=== PATIENT | female | born 1975 | race Hispanic/Latino ===

== ENCOUNTER 2020-02-16 19:17 | Emergency (ER) | payer OTHER ==
--- NOTE | 2020-02-16 21:08 | RAD REPORT ---
EXAM DESCRIPTION: RAD - Shoulder Right 2 View - 02/16/2020 8:59 pm CLINICAL HISTORY: Right shoulder pain FINDINGS: No fracture or dislocation is seen. Small calcific density superior to the humeral head ma y indicate calcific tendinitis
--- NOTE | 2020-02-16 21:18 | EDPHYS ---
Physician Documentation [facility] Name: Ave Salcedo Age: 44 yrs Sex: Female : 1975 Arrival Date: 02/16/2020 Time: 19:20 Bed 8 Private MD: ED Physician Luis Malik HPI: 02/15 20:15 This 44 yrs old Female presents to ER via Ambulatory with complaints of cp Shoulder Pain. 20:15 The patient or guardian complains of an injury, pain, that is acute. right shoulder. cp 20:15 Onset: The symptoms/episode began/occurred 24 day(s) ago. cp 20:15 Modifying factors: The symptoms are aggravated by movement, rotation of arm. Associated cp signs and symptoms: Pertinent negatives: chest pain, neck pain, Numbness in right arm and right shoulder shortness of breath, Weakness in right arm and right shoulder. 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 - Social history:: Smoking status: Patient denies any tobacco usage or history of. Patient uses alcohol, only on a social basis. Patient/guardian denies using street drugs. ROS: 20:20 MS/extremity: Positive for pain, tenderness, of the right shoulder, Negative for cp decreased range of motion, paresthesias, swelling. 20:20 Constitutional: Negative for body aches, chills, fever. cp 20:20 Neck: Negative for pain with movement, pain at rest, stiffness, tenderness, bony tenderness. 20:20 Cardiovascular: Negative for chest pain, palpitations. 20:20 Respiratory: Negative for cough, shortness of breath, wheezing. 20:20 Back: Negative for pain at rest, pain with movement. 20:20 Skin: Negative for rash. 20:20 All other systems are negative. Exam: 20:25 Constitutional: The patient appears in no acute distress, alert, awake, cp non-diaphoretic, well developed, well nourished. 20:25 Head/Face: Normocephalic, atraumatic. cp 20:25 Chest/axilla: Inspection: normal, Palpation: is normal, no crepitus, no tenderness. 20:25 Cardiovascular: Rate: normal, Rhythm: regular, Pulses: Pulses are 2+ in right radial artery and left radial artery. 20:25 Respiratory: the patient does not display signs of respiratory distress, Respirations: normal, no use of accessory muscles, no retractions, labored breathing, is not present. 20:25 Musculoskeletal/extremity: ROM: limited passive range of motion due to pain, in the right shoulder, Sensation intact. Joints: All joints are normal except the right shoulder displays painful range of motion, tenderness. 20:25 Skin: no rash present. Vital Signs: 19:32 BP 131 / 93; Pulse 88; Resp 17; Temp 99.0; Pulse Ox 98% ; Pain 7/10; ll1 21:30 BP 119 / 73; Pulse 85; Resp 16; Temp 97.1; Pulse Ox 99% ; rr5 MDM: 20:03 Patient medically screened. [facility] 20:30 Differential diagnosis: tendonitis, rotator cuff injury, strain. 21:00 Test interpretation: by ED physician or midlevel provider: xrays of right shoulder cp negative for fracture. 21:17 Data reviewed: vital signs, nurses notes, radiologic studies, plain films, and as a cp result, I will discharge patient. 21:17 Counseling: I had a detailed discussion with the patient and/or guardian regarding: the cp historical points, exam findings, and any diagnostic results supporting the discharge/admit diagnosis, radiology results, the need for outpatient follow up, a orthopedic surgeon, to return to the emergency department if symptoms worsen or persist or if there are any questions or concerns that arise at home. 02/15 20:12 Order name: XRAY Shoulder RIGHT 2 view; Complete Time: 21:11 cp 02/15 21:11 Interpretation: Reviewed. 02/15 21:13 Order name: Sling; Complete Time: 21:22 cp Administered Medications: No medications were administered Disposition: 21:35 Chart complete. 02/16 10:37 Co-signature as Attending Physician, Luis Malik MD I agree with the assessment and [facility] plan of care. Disposition: 02/16/20 21:18 Discharged to Home. Impression: Pain in right shoulder. - Condition is Stable. - Discharge Instructions: Shoulder Pain, Shoulder Range of Motion Exercises. - Prescriptions for Diclofenac Sodium 75 mg Oral Tablet, Delayed Release (E.C.) - take 1 tablet by ORAL route 2 times per day; 20 tablet. - Medication Reconciliation Form, Thank You Letter, Antibiotic Education, Prescription Opioid Use form. - Follow up: Fernando Martines MD; When: 2 - 3 days; Reason: Recheck today's complaints. - Problem is new. - Symptoms are unchanged. Signatures: Dispatcher [employer] EDMS Luis Malik MD MD cha Page, Corey, PA PA cp Floyd Jones RN RN rr5 Romero Rojas RN RN ll1 Corrections: (The following items were deleted from the chart) 02/15 21:32 21:18 02/16/2020 21:18 Discharged to Home. Impression: Pain in right shoulder. rr5 Condition is Stable. Forms are Medication Reconciliation Form, Thank You Letter, Antibiotic Education, Prescription Opioid Use. Follow up: Dr. Fernando Martines; When: 2 - 3 days; Reason: Recheck today's complaints. Problem is new. Symptoms are unchanged. cp
--- NOTE | 2020-02-16 21:18 | ER ---
Nurse's Notes [facility] Name: Ave Salcedo Age: 44 yrs Sex: Female : 1975 Arrival Date: 02/16/2020 Time: 19:20 Bed 8 Private MD: Diagnosis: Pain in right shoulder Presentation: 02/15 19:32 Chief complaint: Patient states: Fell 24 days ago. Hurt right shoulder, right ribs, and ll1 right hip. States her hip and ribs feel better now. Right shoulder/arm still hurts, states she was overusing it about 12 days ago. Coronavirus screen: Patient denies a cough. Patient denies shortness of breath or difficulty breathing. Patient denies measured and/or subjective temperature greater than 100.4F prior to today's visit. Patient denies travel on a cruise ship or to a country the [facility] currently lists as an affected area. Patient denies contact with known and/or suspected case of COVID-19. Proceed with normal triage. Ebola Screen: Patient denies travel to an Ebola-affected area in the 21 days before illness onset. Initial Sepsis Screen: Does the patient meet any 2 criteria? No. Patient's initial sepsis screen is negative. Risk Assessment: Do you want to hurt yourself or someone else? Patient reports no desire to harm self or others. Onset of symptoms was January 25, 2020. 19:32 Method Of Arrival: Ambulatory ll1 19:32 Acuity: PATT 4 ll1 19:40 Initial Sepsis Screen: Does the patient have a suspected source of infection? No. Patient's initial sepsis screen is negative. 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 - Social history:: Smoking status: Patient denies any tobacco usage or history of. Patient uses alcohol, only on a social basis. Patient/guardian denies using street drugs. Screenin:40 Abuse screen: Denies threats or abuse. Denies injuries from another. Nutritional screening: No deficits noted. Tuberculosis screening: No symptoms or risk factors identified. Fall Risk Fall in past 12 months (25 points). Assessment: 19:39 General: Appears in no apparent distress. Behavior is calm, cooperative, appropriate wh for age. Pain: Complains of pain in right shoulder. Neuro: Level of Consciousness is awake, alert, obeys commands, Oriented to person, place, time, situation, Appropriate for age. Cardiovascular: Capillary refill < 3 seconds. Respiratory: Airway is patent Respiratory effort is even, unlabored, Respiratory pattern is regular, symmetrical. GI: Abdomen is flat, non-distended. : No signs and/or symptoms were reported regarding the genitourinary system. EENT: No signs and/or symptoms were reported regarding the EENT system. Derm: Skin is intact, is healthy with good turgor, Skin is pink, warm \T\ dry. normal. Musculoskeletal: Range of motion: limited in right shoulder. 21:31 Reassessment: Patient appears in no apparent distress at this time. Patient is alert, rr5 oriented x 3, equal unlabored respirations, skin warm/dry/pink. discharge instruction given and explained without complaints made. Vital Signs: 19:32 BP 131 / 93; Pulse 88; Resp 17; Temp 99.0; Pulse Ox 98% ; Pain 7/10; ll1 21:30 BP 119 / 73; Pulse 85; Resp 16; Temp 97.1; Pulse Ox 99% ; rr5 ED Course: 19:20 Patient arrived in ED. cl3 19:35 Triage completed. ll1 19:36 Arm band placed on Patient placed in an exam room, on a stretcher. ll1 19:38 Justice Rios is Primary Nurse. wh 19:40 Patient has correct armband on for positive identification. Bed in low position. Call wh light in reach. Side rails up X 1. Pulse ox on. NIBP on. 19:58 Luis Kan PA is PHCP. cp 19:58 Luis Malik MD is Attending Physician. cp 20:59 XRAY Shoulder RIGHT 2 view In Process Unspecified. EDMS 21:17 Fernando Martines MD is Referral Physician. cp 21:30 No provider procedures requiring assistance completed. Patient did not have IV access wh during this emergency room visit. 21:30 Sling applied to right arm. wh Administered Medications: No medications were administered Outcome: 21:18 Discharge ordered by . cp 21:30 Discharged to home ambulatory. wh 21:30 Condition: stable 21:30 Discharge instructions given to patient, Instructed on discharge instructions, follow up and referral plans. medication usage, POC Demonstrated understanding of instructions, follow-up care, medications, splint care, POC Prescriptions given X 1. 21:32 Patient left the ED. rr5 Signatures: Dispatcher [employer] EDMS Luis Kan PA PA cp Habalo, Winsy Floyd Jones RN RN rr5 Caden Rojas cl3 Romero Rojas RN RN ll1
[2020-02-17 00:33] VITALS: BP 119/73; TEMP 97.1; O2SAT 99
== END 2020-02-16 21:32 | disposition home or self-care (01) ==
LOC: ER 19:17
DX: M25.511 Pain in right shoulder (principal)
CPT/HCPCS: 99284

== ENCOUNTER 2021-04-09 17:13 | Emergency (ER) | payer OTHER, SELFPAY ==
[2021-04-09] MEDS ORDERED: ACETAMINOPHEN 325 MG TABLET ONE ×3 (18:34→19:36)
--- NOTE | 2021-04-09 20:04 | ER ---
Nurse's Notes [facility] Name: Ave Salcedo Age: 45 yrs Sex: Female : 1975 Arrival Date: 04/09/2021 Time: 17:16 Bed 12 Private MD: Diagnosis: Positive Covid 19 Presentation: 04/09 18:00 Chief complaint: Patient states: Sore throat, headache x 1 day. Pt stated, " Mt kg daughter was diagnosed with COVID Friday and I started having bluish colored feet and hands but no other symptoms till today and then I got really bad cold symptoms.". Coronavirus screen: Vaccine status: Patient reports being unvaccinated. cough unrelated to allergies, headache, sore throat. Ebola Screen: Patient negative for fever greater than or equal to 101.5 degrees Fahrenheit, and additional compatible Ebola Virus Disease symptoms Patient denies exposure to infectious person. Patient denies travel to an Ebola-affected area in the 21 days before illness onset. Initial Sepsis Screen: Does the patient meet any 2 criteria? No. Patient's initial sepsis screen is negative. Does the patient have a suspected source of infection? No. Patient's initial sepsis screen is negative. Risk Assessment: Do you want to hurt yourself or someone else? Patient reports no desire to harm self or others. Onset of symptoms was April 09, 2021. 18:00 Method Of Arrival: Ambulatory kg 18:00 Acuity: PATT 4 kg Triage Assessment: 18:05 General: Appears in no apparent distress. Behavior is calm, cooperative, appropriate kg for age, quiet. Pain: Complains of pain in Head Pain currently is 5 out of 10 on a pain scale. Quality of pain is described as aching. 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 - Social history:: Smoking status: Patient denies any tobacco usage or history of. Screenin:07 Abuse screen: Denies threats or abuse. Denies injuries from another. Nutritional kg screening: No deficits noted. Tuberculosis screening: No symptoms or risk factors identified. Fall Risk None identified. Vital Signs: 18:00 BP 138 / 98; Pulse 102; Resp 18; Temp 100.3(O); Pulse Ox 98% on R/A; Weight 77.11 kg kg (R); Height 5 ft. 1 in. (154.94 cm) (R); Pain 5/10; 19:57 BP 116 / 83; Pulse 95; Resp 20; Temp 98.3; Pulse Ox 98% on R/A; df1 18:00 Body Mass Index 32.12 (77.11 kg, 154.94 cm) kg ED Course: 17:16 Patient arrived in ED. as 18:05 Triage completed. kg 18:05 Arm band placed on right wrist. kg 18:07 Patient has correct armband on for positive identification. kg 19:11 Trey Gordon MD is Attending Physician. pkl 19:53 Renuka Lopez, RN is Primary Nurse. kg 20:09 No provider procedures requiring assistance completed. Patient did not have IV access kg during this emergency room visit. Administered Medications: 19:13 Drug: Tylenol 650 mg Route: PO; wg 20:02 Follow up: Response: No adverse reaction; Marked relief of symptoms; Temperature is kg decreased Outcome: 20:03 Discharge ordered by . pkl 20:09 Discharged to home ambulatory. kg 20:09 Condition: improved 20:09 Discharge instructions given to patient, Instructed on discharge instructions, follow up and referral plans. Demonstrated understanding of instructions, follow-up care. 20:12 Patient left the ED. kg Signatures: Trey Gordon MD MD pkAshleigh Gomez Kristen, RN RN kg Yayo Carbajal RN wg Furlich, Dawn df1
--- NOTE | 2021-04-09 20:04 | EDPHYS ---
Physician Documentation [facility] Name: Ave Salcedo Age: 45 yrs Sex: Female : 1975 Arrival Date: 04/09/2021 Time: 17:16 Bed 12 Private MD: ED Physician Trey Gordon HPI: 04/09 19:32 This 45 yrs old Female presents to ER via Ambulatory with complaints of r/o pkl covid. 19:32 The patient or guardian reports cough, described as mild, with no sputum. Onset: The pkl symptoms/episode began/occurred 1 day(s) ago. Associated signs and symptoms: Pertinent positives: sore throat, fever, headache and bodyache. Patient exposed to daughter diagnosed with Covid 19 5 days ago. Patient said she is not vaccinated. 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 - Social history:: Smoking status: Patient denies any tobacco usage or history of. ROS: 19:32 Eyes: Negative for injury, pain, redness, and discharge. pkl 19:32 ENT: Positive for sore throat. 19:32 Neck: Negative for stiffness. 19:32 Cardiovascular: Negative for chest pain. 19:32 Respiratory: Positive for cough, with no reported sputum, Negative for shortness of breath. 19:32 Abdomen/GI: Negative for abdominal pain, nausea, vomiting, and diarrhea. 19:32 Back: Negative for acute changes. 19:32 : Negative for urinary symptoms. 19:32 MS/extremity: Negative for acute changes. 19:32 Skin: Negative for rash. 19:32 Neuro: Positive for headache, Negative for altered mental status, loss of consciousness. Exam: 19:32 Head/Face: Normocephalic, atraumatic. Eyes: Pupils equal round and reactive to light, pkl extra-ocular motions intact. Lids and lashes normal. Conjunctiva and sclera are non-icteric and not injected. Cornea within normal limits. Periorbital areas with no swelling, redness, or edema. 19:32 ENT: Posterior pharynx: erythema, that is mild. 19:32 Neck: Exam negative for nuchal rigidity. 19:32 Chest/axilla: Exam negative for acute changes. 19:32 Cardiovascular: Rate: tachycardic, actual rate is 102 bpm. 19:32 Respiratory: the patient does not display signs of respiratory distress, Respirations: normal, Breath sounds: are clear throughout. 19:32 Abdomen/GI: Bowel sounds: normal, Palpation: abdomen is soft and non-tender, in all quadrants. 19:32 Back: Exam negative for acute changes. 19:32 : Exam negative for acute changes. 19:32 Musculoskeletal/extremity: Exam is negative for acute changes. 19:32 Skin: Exam negative for rash. 19:32 Neuro: Orientation: is normal, Mentation: is normal, Cranial nerves: grossly normal, Motor: is normal. Vital Signs: 18:00 BP 138 / 98; Pulse 102; Resp 18; Temp 100.3(O); Pulse Ox 98% on R/A; Weight 77.11 kg kg (R); Height 5 ft. 1 in. (154.94 cm) (R); Pain 5/10; 19:57 BP 116 / 83; Pulse 95; Resp 20; Temp 98.3; Pulse Ox 98% on R/A; df1 18:00 Body Mass Index 32.12 (77.11 kg, 154.94 cm) kg MDM: 19:11 Patient medically screened. pkl 20:00 Data reviewed: vital signs, nurses notes. ED course: Discussed lab result with patient. pkl Advised to quarantine for 10 days. To monitor O2 sat with pulse oximeter. To return for evaluation if O2 sat is less than 90%. Patient understood instructions. 04/09 18:00 Order name: COVID-19 : Document "Date of Symptom Onset" if Symptomatic. kg 04/09 19:39 Order name: Strep mw2 04/09 19:49 Order name: SARS-COV-2 RT PCR; Complete Time: 19:56 EDMS Administered Medications: 19:13 Drug: Tylenol 650 mg Route: PO; wg 20:02 Follow up: Response: No adverse reaction; Marked relief of symptoms; Temperature is kg decreased Disposition Summary: 04/09/21 20:03 Discharge Ordered Location: Home pkl Problem: new pkl Symptoms: are unchanged pkl Condition: Stable pkl Diagnosis - Positive Covid 19 pkl Followup: pkl - With: Private Physician - When: 2 - 3 days - Reason: Re-evaluation by your physician Forms: - Medication Reconciliation Form pkl - Thank You Letter pkl - Antibiotic Education pkl - Prescription Opioid Use pkl Signatures: Dispatcher [employer] Trey Jaime MD MD pkl Renuka Lopez, RN RN kg Yayo Carbajal RN wg
[2021-04-09 20:39] VITALS: O2SAT 98
[2021-04-09 20:40] VITALS: BP 116/83; TEMP 98.3
== END 2021-04-09 20:12 | disposition home or self-care (01) ==
LOC: ER 17:13
DX: U07.1 COVID-19 (principal)
CPT/HCPCS: 99283; U0003